=== PATIENT | female | born 1980 | race Caucasian/White ===

== ENCOUNTER 2019-12-31 11:30 | Emergency (ER) | payer SELFPAY ==
[2019-12-31 12:50] VITALS: BP 100/68; PULSE 88; RESP 20; TEMP 37.1; O2SAT 97
== END 2019-12-31 13:20 | disposition left against medical advice (07) ==
LOC: EXPBETH 11:39
PROVIDERS: Emergency Provider Registered Nurse
DX: Z53.21 Procedure and treatment not carried out due to patient leaving prior to being seen by health care provider (principal)
CPT/HCPCS: 87081; 87804; 87880; 99199

== ENCOUNTER 2020-07-23 09:11 | Emergency (ER) | payer MEDICAID, SELFPAY ==
[2020-07-23 09:20] VITALS: BP 108/67; PULSE 73; RESP 16; TEMP 36.5; O2SAT 99
--- NOTE | 2020-07-23 09:31 | ED.FEMALEGU ---
HPI - Female Genitourinary General Chief complaint: Urogenital-Female Stated complaint: frequent urination/burning urination Time Seen by Provider: 07/23/20 09:31 Source: patient and RN notes reviewed History of Present Illness HPI Narrative: Patient is a 39-year-old female who presents the urgent care with complaints of urinary frequency and blood in her urine. Patient states that the urinary frequency started approximately 2 days ago with some abdominal discomfort. States that the blood in the urine was noticed last night. Patient denies any fever, nausea, vomiting. States that she has been using ibuprofen for the pain. Patient reports a history of urinary tract infections. No other acute complaints. No acute distress noted. Patient aware of plan of care. Related Data Allergies Allergy/AdvReac Type Severity Reaction Status Date / Time No Known Allergies Allergy Mild Verified 07/23/20 09:27 Review of Systems Review of Systems: Narrative: CONSTITUTIONAL: Denies fever, chills, or sweats. EYES: Denies visual changes, redness, or discharge. ENT: Denies rhinorrhea, congestion, sore throat, or otalgia. CARDIOVASCULAR: Denies chest pain, palpitations, or edema. RESPIRATORY: Denies cough or dyspnea. GASTROINTESTINAL: Reports of abdominal tenderness without nausea, vomiting, diarrhea GENITOURINARY: Reports of urinary frequency and hematuria SKIN: Denies rash or itching. MUSCULOSKELETAL: Denies back pain, joint pain, or myalgia. NEUROLOGIC: Denies headache, numbness, or weakness. All other systems reviewed are negative, except as documented in HPI. PMFSH Past Medical History Medical History (Updated 07/23/20 @ 09:37 by JUAN ANTONIO Kathleen) Tubal infertility in female Surgical History Surgical History (Updated 10/18/19 @ 08:46 by Elaine Alaniz NP) Hx of cholecystectomy Previous section Social History Social History (Updated 10/18/19 @ 08:45 by Elaine Alaniz NP) Smoking status: Former smoker Comments At the time of my signature, I reviewed and agree with the nursing past medical, surgical, social, and family history. There is no relevant family history pertinent to the patient complaint. Exam Narrative: Exam Narrative: GENERAL: This is a well-nourished, well-developed patient, in no apparent distress. HEAD: normocephalic, atraumatic. EYES: PERRL. Sclera clear/white. Vision is grossly intact. EARS: External ears normal NOSE: External nose normal with no obvious nasal discharge, nares without redness, no rhinorrhea. THROAT: Mucous membranes moist NECK: Neck supple GASTROINTESTINAL: Abdomen soft, suprapubic tenderness, nondistended. SKIN: warm, intact with no suspicious lesions or rash, good texture and turgor. NEURO: awake, alert, and oriented to person, place and time. There were no obvious focal neurologic abnormalities. EXTREMITIES: No clubbing, cyanosis, or edema. BACK: Bilateral CVA tenderness Course Vital Signs Vital signs: Vital Signs Temperature 97.7 F 07/23/20 09:20 Pulse Rate 73 07/23/20 09:20 Respiratory Rate 16 07/23/20 09:20 Blood Pressure 108/67 07/23/20 09:20 Pulse Oximetry 99 07/23/20 09:20 Temperature 97.7 F 07/23/20 09:20 Pulse Rate 73 07/23/20 09:20 Respiratory Rate 16 07/23/20 09:20 Blood Pressure 108/67 07/23/20 09:20 Pulse Oximetry 99 07/23/20 09:20 Reviewed MDM - Female Genitourinary MDM Narrative Medical decision making narrative: Reviewed lab results with the patient. She is aware that urine analysis is questionable of a urinary tract infection due to a trace amount of blood and bacteria. Advised the patient to complete oral antibiotic regimen as prescribed. Make sure to eat and drink with the medication. Increase water intake and avoid sugary and caffeinated drinks. Continue to use Tylenol/ibuprofen as needed for pain. If you develop any increase in symptoms associated with severe abdominal pain, low back pressure, f
== END 2020-07-23 09:41 | disposition home or self-care (01) ==
PROVIDERS: Emergency Provider Nurse Practitioner Family
DX: N39.0 Urinary tract infection, site not specified (principal); Z87.891 Personal history of nicotine dependence
CPT/HCPCS: 81003; 87086; 87088; 99213; G0463

== ENCOUNTER 2021-02-07 08:11 | Emergency (ER) | payer OTHER, SELFPAY ==
--- NOTE | 2021-02-07 08:35 | ED.URI ---
HPI - URI/Sore Throat General Chief Complaint: Upper Respiratory Infection Stated Complaint: COVID Symptoms Time Seen by Provider: 02/07/21 08:42 Source: patient and RN notes reviewed Mode of arrival: ambulatory Limitations: no limitations History of Present Illness HPI Narrative: 40-year-old female presents to [facility] care with day 2 symptoms of cough, fevers up to 101.6, ear pain, nasal congestion with drainage and feelings of chest also been congested. Patient denies any shortness of breath, respirations are even and nonlabored, no tachypnea with SAO2 98% on room air. Patient states no known exposure to COVID, does work on [employer] department and is concerned for possible COVID.She states that she has been taking Ibuprofen for her symptoms. MD elicited complaint: fever, cough, sore throat, rhinorrhea, nasal congestion and other (ears hurt) Onset (ago): day(s) (2) Consistency: constant and progressively worsening Able to tolerate fluids by mouth: Yes Exacerbating factors: swallowing Context: sick contacts (step-son also ill) Associated symptoms: chills and myalgias Treatments prior to arrival: ibuprofen Related Data Allergies Allergy/AdvReac Type Severity Reaction Status Date / Time No Known Allergies Allergy Mild Verified 07/23/20 09:27 Review of Systems Review of Systems: Narrative: CONSTITUTIONAL: Positive fever, chills, or sweats. EYES: Denies visual changes, redness, or discharge. ENT:Positive rhinorrhea, congestion, sore throat, and otalgia. CARDIOVASCULAR: Denies chest pain, palpitations, or edema. RESPIRATORY: positive for cough denies dyspnea. GASTROINTESTINAL: Denies abdominal pain, nausea, vomiting, or diarrhea. GENITOURINARY: Denies dysuria or hematuria. SKIN: Denies rash or itching. MUSCULOSKELETAL: Denies back pain, joint pain, generalized body aches. NEUROLOGIC: Denies headache, numbness, or weakness. PSYCHIATRIC: Denies anxiety or depression. All systems reviewed & are unremarkable except as noted in HPI and below PMFSH Past Medical History Medical History (Updated 02/08/21 @ 00:00 by Andria Daemon) Tubal infertility in female UTI (urinary tract infection) Surgical History Surgical History (Updated 10/18/19 @ 08:46 by Elaine Alaniz NP) Hx of cholecystectomy Previous section Family History Family History (Updated 02/07/21 @ 09:07 by Elaine Alaniz NP) Grandparent Breast cancer Heart disease Father Heart disease Acute myocardial infarction Mother Diabetes mellitus Social History Social History (Updated 02/07/21 @ 09:06 by Elaine Alaniz NP) Smoking status: Former smoker Alcohol intake: current Alcohol use details: rare social Substance use: never Living arrangements: with family Gender identity (if verbalized by the patient): Female Comments At time of signature, agree with nursing past medical, surgical, social and family history. There is no relevant family history pertinent to the presenting complaint Exam Narrative: Exam Narrative: GENERAL: Well-appearing, well-nourished, and in no acute distress. HEAD: Normocephalic, atraumatic. EYES: PERRLA and EOMI. ENT: Nares red with clear rhinorrhea no epistaxis. Mucous membranes moist.TM's normal with good light reflex, throat red with no exudates or lesions, no acute tonsil enlargement, post nasal drainage present NECK: Supple.no lymphadenopathy CHEST: Clear to auscultation. No respiratory distress.cough with no respiratory distress SAO2 98% room air. HEART: Regular rate and rhythm. No murmur heard. Normal peripheral pulses. ABDOMEN: Soft, nontender, nondistended, normal active bowel sounds. EXTREMITIES: Normal range of motion. No edema. SKIN: Warm, dry, no rash. NEURO: No focal deficits. Alert and oriented x3. Course Vital Signs Vital signs: Vital Signs Temperature 36.9 C 02/07/21 08:40 Pulse Rate 83 02/07/21 08:40 Respiratory Rate 18 02/07/21 08:40 Blood Pressure 128/71 02/07/21
[2021-02-07 08:40] VITALS: BP 128/71; PULSE 83; RESP 18; TEMP 36.9; O2SAT 98
[2021-02-08 20:23] LABS: SARS-CoV-2 RNA PCR Negative
== END 2021-02-07 09:40 | disposition home or self-care (01) ==
PROVIDERS: Emergency Provider Registered Nurse
DX: J06.9 Acute upper respiratory infection, unspecified (principal); J02.9 Acute pharyngitis, unspecified; Z20.822 Contact with and (suspected) exposure to COVID-19; Z87.891 Personal history of nicotine dependence
CPT/HCPCS: 87081; 87426; 87804; 87880; 99213; C9803; G0463; U0003; U0005

== ENCOUNTER 2021-08-07 08:03 | Emergency (ER) | payer OTHER, SELFPAY ==
[2021-08-07 08:08] VITALS: BP 126/65; PULSE 98; RESP 20; TEMP 36.4; O2SAT 99
--- NOTE | 2021-08-07 08:09 | ED.URI ---
HPI - URI/Sore Throat General Chief Complaint: Upper Respiratory Infection Stated Complaint: sore throat ears clogged Time Seen by Provider: 08/07/21 08:09 Source: patient and RN notes reviewed History of Present Illness HPI Narrative: Patient is a 40-year-old female who presents the urgent care with complaints of sore throat and ears clogged since yesterday. Patient states that she was hospitalized for Covid in the last 2 weeks for Covid pneumonia. Patient is out of quarantine. States that she had a low-grade fever last night and was taking ibuprofen and throat spray. Denies of any headache, nausea or vomiting. No other acute complaints. No acute distress noted. Patient aware of the plan of care. Some parts of this dictation were generated by voice recognition software and may contain typographical and/or grammatical inaccuracies. Related Data Home Medications Medication Instructions Recorded Confirmed cyclobenzaprine 5 mg PO TID PRN 08/07/21 08/07/21 Allergies Allergy/AdvReac Type Severity Reaction Status Date / Time No Known Allergies Allergy Mild Verified 07/23/20 09:27 Review of Systems Review of Systems: CONSTITUTIONAL: Denies fever, chills, or sweats. EYES: Denies visual changes, redness, or discharge. ENT: Denies rhinorrhea, congestion, otalgia. Reports of sore throat and ears clogged CARDIOVASCULAR: Denies chest pain, palpitations, or edema. RESPIRATORY: Denies cough or dyspnea. GASTROINTESTINAL: Denies abdominal pain, nausea, vomiting, or diarrhea. GENITOURINARY: Denies dysuria or hematuria. SKIN: Denies rash or itching. MUSCULOSKELETAL: Denies back pain, joint pain, or myalgia. NEUROLOGIC: Denies headache, numbness, or weakness. All other systems reviewed are negative, except as documented in HPI. [facility] Past Medical History Medical History (Updated 08/07/21 @ 08:32 by JUAN ANTONIO Kathleen) Tubal infertility in female UTI (urinary tract infection) Surgical History Surgical History (Updated 10/18/19 @ 08:46 by Elaine Alaniz NP) Hx of cholecystectomy Previous section Family History Family History (Updated 02/07/21 @ 09:07 by Elaine Alaniz NP) Grandparent Breast cancer Heart disease Father Heart disease Acute myocardial infarction Mother Diabetes mellitus Social History Social History (Updated 02/07/21 @ 09:06 by Elaine Alaniz NP) Smoking status: Former smoker Alcohol intake: current Alcohol use details: rare social Substance use: never Gender identity (if verbalized by the patient): Female Comments At the time of my signature, I reviewed and agree with the nursing past medical, surgical, social, and family history. There is no relevant family history pertinent to the patient complaint. Exam Narrative: GENERAL: This is a well-nourished, well-developed patient, in no apparent distress. HEAD: normocephalic, atraumatic. EYES: PERRL. Sclera clear/white. Vision is grossly intact. EARS: External ears normal, auditory canals clear and without drainage, mild fluid noted behind bilateral TMs without otitis, TMs normal without perforation. Hearing grossly intact. NOSE: External nose normal with no obvious nasal discharge, nares without redness, no rhinorrhea. THROAT: Mucous membranes moist, mild erythema noted posterior oropharynx with mild postnasal drainage NECK: Neck supple, non-tender without lymphadenopathy CARDIOVASCULAR: Regular rate and rhythm without murmurs, gallops, or rubs. RESPIRATORY: Clear to auscultation. Breath sounds equal bilaterally. No wheezes, rales, or rhonchi. SKIN: warm, intact with no suspicious lesions or rash, good texture and turgor. NEURO: awake, alert, and oriented to person, place and time. There were no obvious focal neurologic abnormalities. EXTREMITIES: No clubbing, cyanosis, or edema. Course Vital Signs Vital signs: Vital Signs Temperature 97.5 F L 08/07/21 08:08 Pulse Rate 98 08/07/21 08:08 Resp
== END 2021-08-07 08:35 | disposition home or self-care (01) ==
PROVIDERS: Emergency Provider Nurse Practitioner Family; PCP Nurse Practitioner Family
DX: J02.9 Acute pharyngitis, unspecified (principal); Z87.891 Personal history of nicotine dependence
CPT/HCPCS: 87081; 87880; 99213; G0463

== ENCOUNTER 2021-10-24 08:50 | Emergency (ER) | payer OTHER, SELFPAY ==
[2021-10-24 08:54] VITALS: BP 131/80; PULSE 81; RESP 16; TEMP 37; O2SAT 100
--- NOTE | 2021-10-24 08:58 | ED.URI ---
HPI - URI/Sore Throat General Chief Complaint: Upper Respiratory Infection Stated Complaint: sore throat ear pain Source: patient and RN notes reviewed Mode of arrival: ambulatory History of Present Illness HPI Narrative: This is a 41-year-old female who presented to urgent care today with complaints of a sore throat and ear pain frontal pressure a fever. According to patient last night she developed the symptoms in noted having a temperature of 101.0. Patient notes that she did take ibuprofen at home with no relief. The patient denies SOB, CP, palpitation, extremity numbness, lightheadedness, dizziness, constipation, diarrhea, or chills.. Strep negative Related Data Allergies Allergy/AdvReac Type Severity Reaction Status Date / Time No Known Allergies Allergy Mild Verified 07/23/20 09:27 Review of Systems Review of Systems: A 14 organ system Review of Systems was performed and pertinent positives included in the HPI, otherwise remaining ROS is negative. [facility] Past Medical History Medical History Tubal infertility in female UTI (urinary tract infection) Surgical History Surgical History Hx of cholecystectomy Previous section Family History Family History Grandparent Breast cancer Heart disease Father Heart disease Acute myocardial infarction Mother Diabetes mellitus Social History Social History (Updated 02/07/21 @ 09:06 by Elaine Alaniz NP) Smoking status: Former smoker Alcohol intake: current Alcohol use details: rare social Substance use: never Gender identity (if verbalized by the patient): Female Exam Narrative: GENERAL: This is a well-nourished, well-developed patient, in no apparent distress. HEAD: normocephalic, atraumatic. EYES: PERRL. Sclera clear/white. Vision is grossly intact. EARS: External ears normal, auditory canals clear and without drainage, TMs normal without perforation. Hearing grossly intact. NOSE: External nose normal with no obvious nasal discharge, nares without redness, no rhinorrhea. THROAT: Mucous membranes moist, posterior pharynx with erythema. NECK: Neck supple, non-tender without lymphadenopathy, masses or thyromegaly. CARDIOVASCULAR: Regular rate and rhythm without murmurs, gallops, or rubs. RESPIRATORY: Clear to auscultation. Breath sounds equal bilaterally. No wheezes, rales, or rhonchi. GASTROINTESTINAL: Abdomen soft, non-tender, nondistended. Bowel sounds are active. No hepato-splenomegaly, or palpable masses. No guarding. SKIN: warm, intact with no suspicious lesions or rash, good texture and turgor. NEURO: awake, alert, and oriented to person, place and time. There were no obvious focal neurologic abnormalities. Steady gait EXTREMITIES: Normal range of motion. No edema. No calf tenderness. Negative Homans sign bilaterally. BACK: Nontender without deformity or crepitance. No flank tenderness. Course Course Emergency Course: Patient diagnosed with viral infection and instructed to use [id number] medication for symptoms Vital Signs Vital signs: Vital Signs Temperature 98.6 F 10/24/21 08:54 Pulse Rate 81 10/24/21 08:54 Respiratory Rate 16 10/24/21 08:54 Blood Pressure 131/80 10/24/21 08:54 Pulse Oximetry 100 10/24/21 08:54 Temperature 98.6 F 10/24/21 08:54 Pulse Rate 81 10/24/21 08:54 Respiratory Rate 16 10/24/21 08:54 Blood Pressure 131/80 10/24/21 08:54 Pulse Oximetry 100 10/24/21 08:54 MDM - URI/Sore Throat Differential Diagnosis Differential diagnosis: Likely upper respiratory infection, sinusitis, viral infection, influenza and pharyngitis Lab Data Labs: Strep Screen Presumptive Negative *(Reference Range: Negative)* Discharge Plan Discharge Clinic
== END 2021-10-24 09:17 | disposition home or self-care (01) ==
PROVIDERS: Emergency Provider Nurse Practitioner; PCP Nurse Practitioner Family
DX: B34.9 Viral infection, unspecified (principal); Z87.891 Personal history of nicotine dependence
CPT/HCPCS: 87081; 87880; 99213; G0463

== ENCOUNTER 2021-11-28 09:44 | Emergency (ER) | payer OTHER, SELFPAY ==
[2021-11-28 09:50] VITALS: BP 138/78; PULSE 87; RESP 16; TEMP 36.9; O2SAT 100
--- NOTE | 2021-11-28 10:05 | ED.URI ---
HPI - URI/Sore Throat General Chief Complaint: Upper Respiratory Infection Stated Complaint: Sore throat, cough Time Seen by Provider: 11/28/21 10:05 Source: patient, family, RN notes reviewed and old records reviewed Mode of arrival: ambulatory Limitations: no limitations History of Present Illness HPI Narrative: 41-year-old female presents to the [facility] with complaints of sore throat and cough since Wednesday. Was tested PCR at [facility] which she reports is negative COVID on Wednesday, got her results on Wednesday. Has taken ibuprofen and Tylenol along with NyQuil. Patient is not COVID vaccinated she is fully vaccinated. Has concerns for FLU Related Data Home Medications Medication Instructions Recorded Confirmed buspirone 15 mg PO DAILY 11/28/21 11/28/21 cyclobenzaprine 5 mg PO DAILY PRN 11/28/21 11/28/21 hydroxyzine pamoate 50 mg PO DAILY 11/28/21 11/28/21 lamotrigine 25 mg PO DAILY 11/28/21 11/28/21 trazodone 100 mg PO HS 11/28/21 11/28/21 Allergies Allergy/AdvReac Type Severity Reaction Status Date / Time No Known Allergies Allergy Mild Verified 07/23/20 09:27 Review of Systems Review of Systems: All systems reviewed & are unremarkable except as noted in HPI and below Constitutional: Constitutional: Reports as per HPI, Denies chills, Reports fever(s) and Denies headache(s) Eyes: Eyes: Reports no additional eye complaints ENT: Reports as per HPI, Denies vertigo, Denies dizziness, Denies headache(s), Denies nasal congestion and Reports sore throat Comments: Laryngitis Cardiovascular: Cardiovascular: Reports no additional cardiovascular complaints, Denies chest pain, Denies syncope, Denies rapid heart rate and Denies dyspnea Respiratory: Respiratory: Reports as per HPI, Reports no additional respiratory complaints, Reports cough, Denies dyspnea and Denies wheezing Gastrointestinal: Gastrointestinal: Reports no additional gastrointestinal complaints, Denies abdominal pain, Denies diarrhea, Denies nausea and Denies vomiting Musculoskeletal: Musculoskeletal: Reports no additional musculoskeletal complaints and Denies numbness Integumentary/Breasts: Skin/Breast: Reports system reviewed and no additional complaints, except as docu Neurologic: Reports system reviewed and no additional complaints, except as documented, Denies vertigo, Denies dizziness, Denies syncope, Denies headache(s), Denies focal weakness and Denies numbness Psychiatric: Psychiatric: Reports no additional psychiatric complaints Allergic/Immunologic: Allergic/Immunologic: Reports no additional allergic/immunologic complaints and Denies wheezing PMFSH Past Medical History Medical History Tubal infertility in female UTI (urinary tract infection) Surgical History Surgical History Hx of cholecystectomy Previous section Family History Family History Grandparent Breast cancer Heart disease Father Heart disease Acute myocardial infarction Mother Diabetes mellitus Social History Social History Smoking status: Former smoker Alcohol intake: current Alcohol use details: rare social Substance use: never Gender identity (if verbalized by the patient): Female Comments At the time of my signature, I reviewed and agree with the nursing past medical, surgical, social, and family history. There is no relevant family history pertinent to the patient complaint. Exam Const: General: cooperative, healthy appearing, no acute distress, well developed and alert Nutritional Appearance: well nourished Orientation/consciousness: patient oriented x3 Limitations: no limitations HENMT: Head: normal to inspection Ears: hearing grossly normal bilaterally, external ears normal, TM's normal bilaterally and EAC's normal General no
== END 2021-11-28 10:32 | disposition home or self-care (01) ==
PROVIDERS: Emergency Provider Nurse Practitioner; PCP Nurse Practitioner Family
DX: B34.9 Viral infection, unspecified (principal); R09.82 Postnasal drip; J04.0 Acute laryngitis; Z87.891 Personal history of nicotine dependence
CPT/HCPCS: 87081; 87880; 99213; G0463

== ENCOUNTER 2022-09-11 08:54 | Emergency (ER) | payer OTHER, SELFPAY ==
[2022-09-11 08:58] VITALS: BP 127/72; PULSE 89; RESP 16; TEMP 37.2; O2SAT 97
--- NOTE | 2022-09-11 09:01 | ED.URI ---
HPI - URI/Sore Throat General Chief Complaint: Upper Respiratory Infection Stated Complaint: sore throat headache body aches Time Seen by Provider: 09/11/22 09:01 Source: patient, RN notes reviewed and old records reviewed Mode of arrival: ambulatory Limitations: no limitations History of Present Illness HPI Narrative: 42 year old female presents to [facility] care with complaints of sore throat, fevers, body aches for the past 2 days with cough and headaches. Patient reports that she could hardly swallow this morning her throat hurts so bad. Patient reports that she has been taking NyQuil. Mucinex and Tylenol for her symptoms. Patient has been COVID vaccinated and she has also had flu shot this season, patient voices also she has had COVID in the past. MD elicited complaint: cough, sore throat and other (headache, body aches) Related Data Home Medications Medication Instructions Recorded Confirmed midodrine 10 mg tablet 10 mg PO TID 09/11/22 09/11/22 sertraline 50 mg tablet 50 mg PO DAILY 09/11/22 09/11/22 Allergies Allergy/AdvReac Type Severity Reaction Status Date / Time No Known Allergies Allergy Mild Verified 09/11/22 09:14 Review of Systems Review of Systems: CONSTITUTIONAL: Reports malaise, chills, sweats, or fever. EYES: Denies visual changes, redness, or discharge. ENT: Reports rhinorrhea, congestion, no sinus pain, no otalgia, positive for sore throat. CARDIOVASCULAR: Denies chest pain, palpitations, or edema. RESPIRATORY: Reports cough.? Denies dyspnea. GASTROINTESTINAL: Denies abdominal pain, nausea, vomiting, diarrhea SKIN: Denies rash or itching. MUSCULOSKELETAL:Reports myalgia. NEUROLOGIC: Reports headache. All systems reviewed & are unremarkable except as noted in HPI and below PMFSH Past Medical History Medical History (Updated 09/12/22 @ 00:00 by Andria Joyner) Tubal infertility in female UTI (urinary tract infection) Surgical History Surgical History (Updated 09/11/22 @ 09:05 by Elaine Alaniz NP) Hx of cholecystectomy Hx of tubal ligation Previous section Family History Family History Grandparent Breast cancer Heart disease Father Heart disease Acute myocardial infarction Mother Diabetes mellitus Social History Social History Smoking status: Former smoker Alcohol intake: current Alcohol use details: rare social Substance use: never Gender identity (if verbalized by the patient): Female Comments At time of signature, agree with nursing past medical, surgical, social and family history. There is no relevant family history pertinent to the presenting complaint Exam Narrative: GENERAL: Well-appearing, well-nourished, and in no acute distress. HEAD: Normocephalic EYES: PERRLA, conjunctivae clear ENT: Nares clear, turbinates edematous and erythematous, clear discharge. Mucous membranes moist. TM pearly sprague with dull light reflex bilaterally; no tragal tenderness. Oropharynx erythematous without lesions. Tonsils enlarged and with exudate, no drooling, no hoarseness, no trismus, uvula midline. NECK: Supple. lymphadenopathy CHEST: Clear to auscultation, breath sounds equal. No wheezing, rhonchi, rales, or stridor. No respiratory distress, speaks in full sentences.Cough, [id number]% on room air HEART: Regular rate and rhythm. No murmur heard. SKIN: Warm, dry, no rash. NEURO: Alert and oriented x3. PSYCH: Normal mood and affect Course Course Emergency Course: Patient is aware of diagnosis, understands and agrees to treatment plan.? Anticipatory guidance given.? Patient agrees to follow-up as directed and is aware of reasons to seek care at the emergency department. Portions of this record may have been created with voice recognition software Level of Care: Express Care Visit Vital Signs Vital signs: Vital Signs
== END 2022-09-11 09:35 | disposition home or self-care (01) ==
PROVIDERS: Emergency Provider Registered Nurse; PCP Nurse Practitioner Family
DX: J02.0 Streptococcal pharyngitis (principal); Z87.891 Personal history of nicotine dependence
CPT/HCPCS: 87880; 99213; G0463

== ENCOUNTER 2022-09-20 08:19 | Emergency (ER) | payer OTHER, SELFPAY ==
--- NOTE | ~2022-09-20 | XR_ITS ---
XR chest 2V DATE: 09/20/2022 08:56 INDICATION: Cough for one week. Body aches. TECHNIQUE: 2 views COMPARISON: 12/13/2008 AP and lateral chest FINDINGS: Electronic monitor device is noted in the anterior left chest wall. Normal heart size. No hilar or mediastinal enlargement. Bilateral hyperinflation. No pulmonary infiltrate or consolidation, pleural effusion or pulmonary vas cular congestion or pneumothorax. Surgical clips overlie the upper abdomen on the lateral view, likely due to cholecystectomy. IMPRESSION: Bilateral hyperinflation; no active cardiopulmonary disease Reviewed, dictated and finalized at location A. IO DIRECTOR
[2022-09-20 08:30] VITALS: BP 137/82; PULSE 78; RESP 18; TEMP 37.1; O2SAT 98
[2022-09-20 08:41] VITALS: BP 137/82; PULSE 78; RESP 18; TEMP 37.1; O2SAT 98
--- NOTE | 2022-09-20 08:45 | ED.GENADULT ---
HPI - General Adult General Chief complaint: Upper Respiratory Infection Stated complaint: Chest Congestion/Cough Source: patient Mode of arrival: ambulatory Limitations: no limitations History of Present Illness HPI narrative: Patient presents for evaluation of sick symptoms. She was evaluated here on 09/11/2022 was diagnosed with strep pharyngitis. She was given augmentin which she completed. She states her sore throat improved but now has fever, chills, diarrhea, bilateral otalgia, generalized body aches, and nonproductive cough. No SOB, nausea, or vomiting. Her son recently had strep as well. She has taken mucinex, dayquil, tylenol and ibuprofen for her symptoms. She does not smoke. No additional complaints or concerns. Related Data Home Medications Medication Instructions Recorded Confirmed midodrine 10 mg tablet 10 mg PO TID 09/11/22 09/20/22 sertraline 50 mg tablet 50 mg PO DAILY 09/11/22 09/20/22 Allergies Allergy/AdvReac Type Severity Reaction Status Date / Time No Known Allergies Allergy Mild Verified 09/20/22 08:38 Review of Systems Review of Systems: CONSTITUTIONAL: Reports fever, chills EYES: Denies visual changes, redness, or discharge. ENT: Reports sore throat and bilateral otalgia CARDIOVASCULAR: Denies chest pain, palpitations, or edema. RESPIRATORY: Reports cough. Denies SOB. GASTROINTESTINAL: Denies abdominal pain, nausea, vomiting, or diarrhea. GENITOURINARY: Denies dysuria or hematuria. SKIN: Denies rash or itching. MUSCULOSKELETAL: Reports generalized body aches. NEUROLOGIC: Denies headache, numbness, dizziness, or weakness. PSYCHIATRIC: Denies anxiety or depression. [facility] Past Medical History Medical History Syncope Tubal infertility in female UTI (urinary tract infection) Surgical History Surgical History Hx of cholecystectomy Hx of tubal ligation Previous section Family History Family History Grandparent Breast cancer Heart disease Father Heart disease Acute myocardial infarction Mother Diabetes mellitus Social History Social History Smoking status: Former smoker Alcohol intake: current Alcohol use details: rare social Substance use: never Living arrangements: with family Gender identity (if verbalized by the patient): Female Sexual Orientation (if Verbalized by the Patient): Straight or Heterosexual Spiritual care concerns: No Exam Narrative: GENERAL: Well-appearing, well-nourished, and in no acute distress. HEAD: Normocephalic, atraumatic. EYES: PERRLA and EOMI. ENT: Nares clear, no rhinorrhea or epistaxis. Mucous membranes moist. Mild posterior pharyngeal erythema without exudate. Uvula is midline. Bilateral TMs pearly sprague nonbulging NECK: Supple. No adenopathy or masses. No carotid bruits or JVD CHEST: Clear to auscultation. No respiratory distress. No wheezes rales or rhonchi HEART: Regular rate and rhythm. No murmur heard. Normal peripheral pulses. ABDOMEN: Soft, nontender, nondistended, normal active bowel sounds. EXTREMITIES: Normal range of motion. No edema. SKIN: Warm, dry, no rash. NEURO: No focal deficits. Alert and oriented x3. PSYCH: Normal mood and affect. Course Course Emergency Course: This is a 42-year-old female who presented for evaluation of sick symptoms after being treated for strep recently. COVID, influenza, strep and CXR are all negative. Exam is consistent with acute viral syndrome. Will dc with tessalon and cepacol. Follow up outpatient for further evaluation and treatment and go to ER for difficulty breathing or worsening symptoms. Pt in agreement with plan of care. Level of Care: Express Care Visit Vital Signs Vital signs: Vital Signs Temperature 3
== END 2022-09-20 09:20 | disposition home or self-care (01) ==
PROVIDERS: Emergency Provider Nurse Practitioner; PCP Nurse Practitioner Family
DX: B34.9 Viral infection, unspecified (principal); Z87.891 Personal history of nicotine dependence; Z20.822 Contact with and (suspected) exposure to COVID-19
CPT/HCPCS: 71046; 87081; 87426; 87804; 87880; 99213; C9803; G0463

== ENCOUNTER 2024-01-14 10:51 | Emergency (ER) | payer SELFPAY ==
[2024-01-14 10:57] VITALS: BP 138/73; PULSE 88; RESP 16; TEMP 36.8; O2SAT 99
--- NOTE | 2024-01-14 11:38 | ED.URI ---
HPI - URI/Sore Throat General Chief Complaint: Upper Respiratory Infection Stated Complaint: Sore Throat Time Seen by Provider: 01/14/24 11:40 Source: patient and RN notes reviewed Mode of arrival: ambulatory Limitations: no limitations History of Present Illness HPI Narrative: 43 year old female presents with concern for 1 day history of cough, chest fullness, headache, sore throat, general malaise. 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 She reports she has been taking [id number] medications without relief. MD elicited complaint: cough and sore throat Related Data Home Medications Medication Instructions Recorded Confirmed Otc Vitamins 01/14/24 Allergies Allergy/AdvReac Type Severity Reaction Status Date / Time No Known Allergies Allergy Mild Verified 01/14/24 11:28 Review of Systems Review of Systems: CONSTITUTIONAL: Reports malaise, chills, sweats, or fever. EYES: Denies visual changes, redness, or discharge. ENT: Reports rhinorrhea, congestion, and sore throat. CARDIOVASCULAR: Denies chest pain, palpitations, or edema. RESPIRATORY: Reports cough. Denies dyspnea. GASTROINTESTINAL: Denies abdominal pain, nausea, vomiting, diarrhea SKIN: Denies rash or itching. MUSCULOSKELETAL: Reports myalgia. NEUROLOGIC: Reports headache. All systems reviewed & are unremarkable except as noted in HPI and below PMFSH Past Medical History Medical History Syncope Tubal infertility in female UTI (urinary tract infection) Surgical History Surgical History Hx of cholecystectomy Hx of tubal ligation Previous section Family History Family History Grandparent Breast cancer Heart disease Father Heart disease Acute myocardial infarction Mother Diabetes mellitus Social History Social History Smoking status: Former smoker Alcohol intake: current Alcohol use details: rare social Substance use: never Living arrangements: with family Gender identity (if verbalized by the patient): Female Sexual Orientation (if Verbalized by the Patient): Straight or Heterosexual Spiritual care concerns: No Comments At time of signature, agree with nursing past medical, surgical, social and family history. There is no relevant family history pertinent to the presenting complaint Exam Narrative: GENERAL: Nontoxic-appearing, well-nourished, and in no acute distress. HEAD: Normocephalic EYES: PERRLA, conjunctivae clear ENT: Nares clear, clear discharge. Mucous membranes moist. TM pearly sprague with dull light reflex bilaterally; no tragal tenderness. Oropharynx not erythematous without lesions. Tonsils not enlarged and without exudate, no drooling, no hoarseness, no trismus, uvula midline. NECK: Supple. No lymphadenopathy CHEST: Clear to auscultation, breath sounds equal. No wheezing, rhonchi, rales, or stridor. No respiratory distress, speaks in full sentences. HEART: Regular rate and rhythm. No murmur heard. SKIN: Warm, dry, no rash. NEURO: Alert and oriented x3. PSYCH: Normal mood and affect Course Course Emergency Course: Patient is aware of diagnosis, understands and agrees to treatment plan. Anticipatory guidance given. Patient agrees to follow-up as directed and is aware of reasons to seek care at the emergency department. Portions of this record may have been created with voice recognition software Level of Care: Express Care Visit Vital Signs Vital signs: Vital Signs Temperature 98.2 F 01/14/24 10:57 Pulse Rate 88 01/14/24 10:57 Respiratory Rate 16 01/14/24 10:57 Blood Pressure 138/73 01/14/24 10:57 Pulse Oximetry 99 01/14/24 10:57 Oxygen Delivery Room Air 01/14/24 10:57 Temperature 98.2 F 01/14/24 10:57 Pulse Rate 88
== END 2024-01-14 11:51 | disposition home or self-care (01) ==
PROVIDERS: Emergency Provider Nurse Practitioner; PCP Nurse Practitioner Family
DX: B34.9 Viral infection, unspecified (principal); Z20.822 Contact with and (suspected) exposure to COVID-19; Z87.891 Personal history of nicotine dependence
CPT/HCPCS: 87081; 87426; 87804; 87880; 99213; G0463

== ENCOUNTER 2024-04-14 10:48 | Emergency (ER) | payer OTHER, SELFPAY ==
[2024-04-14 10:55] VITALS: BP 124/68; PULSE 76; RESP 18; TEMP 37.2; O2SAT 100
--- NOTE | 2024-04-14 11:19 | ED.BACK ---
HPI - Back Pain/Injury General Chief Complaint: Back Pain/Injury Stated Complaint: Back Pain Time Seen by Provider: 04/14/24 11:19 Source: patient Mode of arrival: ambulatory Limitations: no limitations History of Present Illness HPI Narrative: 43-year-old female with history of chronic back pain due to bulging dust presents today with complaint of worsening of her back pain. No new injury. He has a pain specialist but they were not able to get her in for an appointment. Patient reports that she gets nerve blocks and has prescription for tramadol but is out of this medication. Patient requesting steroids and pain shot today. Ambulatory with steady gait. All systems reviewed and negative except as noted above. Related Data Home Medications Medication Instructions Recorded Confirmed Otc Vitamins 01/14/24 Allergies Allergy/AdvReac Type Severity Reaction Status Date / Time No Known Allergies Allergy Mild Verified 01/14/24 11:28 Review of Systems Review of Systems: CONSTITUTIONAL: Denies fever, chills, or sweats. EYES: Denies visual changes, redness, or discharge. ENT: Denies rhinorrhea, congestion, sore throat, or otalgia. CARDIOVASCULAR: Denies chest pain, palpitations, or edema. RESPIRATORY: Denies cough or dyspnea. GASTROINTESTINAL: Denies abdominal pain, nausea, vomiting, or diarrhea. GENITOURINARY: Denies dysuria or hematuria. SKIN: Denies rash or itching. MUSCULOSKELETAL: Reports low back pain. Denies joint pain, or myalgia. NEUROLOGIC: Denies headache, numbness, or weakness. PSYCHIATRIC: Denies anxiety or depression. All other systems reviewed are negative, except as documented in HPI. [facility] Past Medical History Medical History Syncope Tubal infertility in female UTI (urinary tract infection) Surgical History Surgical History Hx of cholecystectomy Hx of tubal ligation Previous section Family History Family History Grandparent Breast cancer Heart disease Father Heart disease Acute myocardial infarction Mother Diabetes mellitus Social History Social History Smoking status: Former smoker Alcohol intake: current Alcohol use details: rare social Substance use: never Living arrangements: with family Gender identity (if verbalized by the patient): Female Sexual Orientation (if Verbalized by the Patient): Straight or Heterosexual Spiritual care concerns: No Comments At time of signature, agree with nursing past medical, surgical, social and family history. There is no relevant family history pertinent to the presenting complaint. Exam Narrative: GENERAL: This is a well-nourished, well-developed patient, in no apparent distress. HEAD: normocephalic, atraumatic. EYES: PERRL. Sclera clear/white. Vision is grossly intact. EARS: External ears normal NOSE: External nose normal NECK: Neck supple, non-tender without lymphadenopathy, masses or thyromegaly. CARDIOVASCULAR: Regular rate and rhythm without murmurs, gallops, or rubs. RESPIRATORY: Clear to auscultation. Breath sounds equal bilaterally. No wheezes, rales, or rhonchi. SKIN: warm, Dry, intact with no suspicious lesions or rash, good texture and turgor. NEURO: awake, alert, and oriented to person, place and time. There were no obvious focal neurologic abnormalities. EXTREMITIES: No joint tenderness, effusion, or edema noted. No calf tenderness. Negative Homans sign bilaterally. BACK: Tenderness to L4, L5. Generalized muscle tenderness to lumbar region. No deformity. Lower extremity strength 5/5 bilaterally. Course Course Level of Care: Express Care Visit Vital Signs Vital signs: Vital Signs Temperature 37.2 C 04/14/24 10:55 Pulse Rate 76 04/14
[2024-04-14] MEDS: KETOROLAC (*BKC) 60 MG/2 ML VIAL IM (11:34)
== END 2024-04-14 11:53 | disposition home or self-care (01) ==
PROVIDERS: Emergency Provider Nurse Practitioner Family; PCP Nurse Practitioner Family
DX: M54.50 Low back pain, unspecified (principal); Z87.891 Personal history of nicotine dependence
CPT/HCPCS: 96372; 99213; G0463; J1885

== ENCOUNTER 2024-07-20 08:59 | Emergency (ER) | payer OTHER, SELFPAY ==
[2024-07-20 09:05] VITALS: BP 113/61; PULSE 78; RESP 18; TEMP 36.9; O2SAT 100
--- NOTE | 2024-07-20 09:19 | ED.FEMALEGU ---
HPI - Female Genitourinary General Chief complaint: Urogenital-Female Stated complaint: Urinary Problem/Mouth Sore Time Seen by Provider: 07/20/24 09:18 Source: patient, RN notes reviewed and old records reviewed Mode of arrival: ambulatory Limitations: no limitations History of Present Illness HPI Narrative: 43 year old female who presents to [facility] with complaints of UTI symptoms of burning, urgency,frequency, lower back pain and some some suprapubic pressure for the past 3 days. Patient reports that she also has sore throat with white lesions noted to throat and to the inside of her lower mouth. Patient reports no fevers, chills or sweats denies any nausea or vomiting/ Patient reports that she has increased her water intake and has been drinking cranberry juice. Patient reports no vaginal discharge or any concern for STD exposure. MD elicited complaint: UTI Onset (ago): day(s) (UTI symptoms, this morning with throat and mouth soreness.) Severity scale (1-10): 6 Quality of pain: aching Vaginal discharge: none Treatment prior to arrival: other (increased water and cranberry juice) Related Data Home Medications Medication Instructions Recorded Confirmed aripiprazole 5 mg tablet 5 mg PO DAILY 07/20/24 07/20/24 propranolol 10 mg tablet 10 mg PO BID 07/20/24 07/20/24 Allergies Allergy/AdvReac Type Severity Reaction Status Date / Time No Known Allergies Allergy Mild Verified 07/20/24 09:25 Review of Systems Review of Systems: CONSTITUTIONAL: Denies fever, chills, or sweats. white sores in mouth CARDIOVASCULAR: Denies chest pain, palpitations, or edema. RESPIRATORY: Denies cough or dyspnea. GASTROINTESTINAL: suprapubic pressure,no nausea, vomiting, or diarrhea. GENITOURINARY: Reports dysuria, frequency, urgency. Denies flank pain or hematuria. SKIN: Denies rash or itching. MUSCULOSKELETAL: Reports back pain or myalgia. Denies CVA tenderness NEUROLOGIC: Denies headache All systems reviewed & are unremarkable except as noted in HPI and below PMFSH Past Medical History Medical History (Updated 07/21/24 @ 13:45 by Elaine Alaniz NP) Anxiety Syncope Tubal infertility in female UTI (urinary tract infection) Surgical History Surgical History Hx of cholecystectomy Hx of tubal ligation Previous section Family History Family History Grandparent Breast cancer Heart disease Father Heart disease Acute myocardial infarction Mother Diabetes mellitus Social History Social History (Updated 07/21/24 @ 13:45 by Elaine Alaniz NP) Smoking status: Current every day smoker Tobacco type: e-cigarettes/vaping Alcohol intake: current Alcohol use details: rare social Substance use: never Living arrangements: with family Gender identity (if verbalized by the patient): Female Sexual Orientation (if Verbalized by the Patient): Straight or Heterosexual Spiritual care concerns: No Comments At time of signature, agree with nursing past medical, surgical, social and family history. There is no relevant family history pertinent to the presenting complaint Exam Narrative: GENERAL: Well-appearing, well-nourished, and in no acute distress. HEAD: Normocephalic, atraumatic. white lesions to front of lower mouth X2 and one noted in throat NECK: Supple.no lymphadenopathy CHEST: Clear to auscultation. No respiratory distress.no cough noted SAO2 100% on room air HEART: Regular rate and rhythm. No murmur heard. Normal peripheral pulses. ABDOMEN: Soft, nontender, nondistended, normal active bowel sounds. No CVA tenderness, reports lower back discomfort.frequency urgency and dysuria EXTREMITIES: Normal range of motion. No edema. SKIN: Warm, dry, no rash. NEURO: No focal deficits. Alert and oriented x3. Course Course Emergency Course: Patient is aware of diagnosis, underst
[2024-07-20 09:33] LABS: EDSTREPNEGPOS1 Negative; EDUAAPPEAR Cloudy; EDUABILI Negative; EDUABLOOD 1+; EDUACOLOR1 Yellow; EDUAGLUCOSE Negative; EDUAKETONE Negative; EDUALEUKO 2+; EDUANITRATE Negative; EDUAPH 5.5; EDUAPROTEIN 1+; EDUASPGRAVITY 1.025; EDUAUROBILI 0.2
== END 2024-07-20 09:40 | disposition home or self-care (01) ==
PROVIDERS: Emergency Provider Registered Nurse; PCP Nurse Practitioner Family
DX: N39.0 Urinary tract infection, site not specified (principal); B96.20 Unspecified Escherichia coli [E. coli] as the cause of diseases classified elsewhere; K12.0 Recurrent oral aphthae; F17.290 Nicotine dependence, other tobacco product, uncomplicated
CPT/HCPCS: 81003; 87077; 87081; 87086; 87088; 87186; 87880; 99213; G0463

== ENCOUNTER 2024-08-02 08:25 | Emergency (ER) | payer OTHER, SELFPAY ==
[2024-08-02 08:30] VITALS: BP 122/64; PULSE 77; RESP 16; TEMP 37.2; O2SAT 100
--- NOTE | 2024-08-02 08:30 | ED.URI ---
HPI - URI/Sore Throat General Chief Complaint: Upper Respiratory Infection Stated Complaint: throat Time Seen by Provider: 08/02/24 08:30 Source: patient, RN notes reviewed and old records reviewed Mode of arrival: ambulatory Limitations: no limitations History of Present Illness HPI Narrative: 43-year-old female to Express Care for complaint of sore throat, runny nose, nasal congestion, bilateral ear fullness, low-grade fever, body aches, chills since yesterday morning. Patient reports cough that started this morning. Patient has not attempted to treat at home with [id number] medications. Patient denies allergies, shortness of breath, chest pain, difficulty swallowing, pertinent medical history. Patient able to tolerate fluids by mouth. Patient resting comfortably in exam room, appears tired and acutely ill. Respirations even and nonlabored. Patient in no acute distress. Related Data Home Medications Medication Instructions Recorded Confirmed aripiprazole 5 mg tablet 5 mg PO DAILY 07/20/24 08/02/24 propranolol 10 mg tablet 10 mg PO BID 07/20/24 08/02/24 meloxicam 15 mg tablet 15 mg PO DAILY 08/02/24 08/02/24 methocarbamol 500 mg tablet 500 mg PO HS 08/02/24 08/02/24 Allergies Allergy/AdvReac Type Severity Reaction Status Date / Time No Known Allergies Allergy Mild Verified 08/02/24 08:48 Review of Systems Review of Systems: All systems reviewed & are unremarkable except as noted in HPI and below Constitutional: Constitutional: Reports as per HPI, Reports body ache(s), Reports chills and Reports fever(s) Eyes: Eyes: Reports no additional eye complaints ENT: Reports as per HPI, Reports otalgia, Reports nasal congestion and Reports nasal discharge Cardiovascular: Cardiovascular: Reports no additional cardiovascular complaints, Denies chest pain and Denies dyspnea Respiratory: Respiratory: Reports no additional respiratory complaints, Reports cough and Denies dyspnea Musculoskeletal: Musculoskeletal: Reports no additional musculoskeletal complaints Neurologic: Reports system reviewed and no additional complaints, except as documented Psychiatric: Psychiatric: Reports no additional psychiatric complaints PMFSH Past Medical History Medical History Anxiety Syncope Tubal infertility in female UTI (urinary tract infection) Surgical History Surgical History Hx of cholecystectomy Hx of tubal ligation Previous section Family History Family History Grandparent Breast cancer Heart disease Father Heart disease Acute myocardial infarction Mother Diabetes mellitus Social History Social History Smoking status: Current every day smoker Tobacco type: e-cigarettes/vaping Alcohol intake: current Alcohol use details: rare social Substance use: never Living arrangements: with family Gender identity (if verbalized by the patient): Female Sexual Orientation (if Verbalized by the Patient): Straight or Heterosexual Spiritual care concerns: No Comments At the time of my signature, I reviewed and agree with the nursing past medical, surgical, social, and family history. There is no relevant family history pertinent to the patient complaint. Exam Const: General: cooperative, no acute distress, alert, tired appearing, uncomfortable and well nourished Nutritional Appearance: well nourished Orientation/consciousness: patient oriented x3 Limitations: no limitations HENMT: Head: normal to inspection Ears: external ears normal and TM abnormal bulging on the left, dull on the left, erythematous on the left and with loss of landmarks on the left Face/Nose/Sinus: Normal external nose present, Normal nares present, normal facial exam, No erythema an
[2024-08-02 09:12] LABS: EDCOVIDSCREEN Negative (Negative); EDINFLUASCREEN Negative (Negative); EDINFLUBSCREEN Negative (Negative); EDSTREPNEGPOS1 Negative (Negative)
== END 2024-08-02 09:24 | disposition home or self-care (01) ==
PROVIDERS: Emergency Provider Nurse Practitioner Family; PCP Nurse Practitioner Family
DX: H66.92 Otitis media, unspecified, left ear (principal); Z20.822 Contact with and (suspected) exposure to COVID-19; F17.290 Nicotine dependence, other tobacco product, uncomplicated
CPT/HCPCS: 87081; 87635; 87804; 87880; 99213; G0463

== ENCOUNTER 2024-08-09 10:40 | Emergency (ER) | payer OTHER, SELFPAY ==
[2024-08-09 10:45] VITALS: BP 131/63; PULSE 87; RESP 16; TEMP 36.6; O2SAT 100
--- NOTE | 2024-08-09 10:50 | ED.URI ---
HPI - URI/Sore Throat General Chief Complaint: Upper Respiratory Infection Stated Complaint: throat Time Seen by Provider: 08/09/24 10:58 History of Present Illness HPI Narrative: 43 y/o female presented for c/o mouth pain and sores for over one month. Reports a lesion to left upper mouth and lower gumline. States the lesions have persisted and pain radiates down the throat. Pain in throat is a burning sensation. Pt had been seen in clinic on 07/20, given viscous lidocaine which helps the pain temporarily.Scheduled with pcp 08/23. Denies n/v/d/f/c. Treated with amoxicillin and Augmentin since 07/20. Related Data Home Medications Medication Instructions Recorded Confirmed aripiprazole 5 mg tablet 5 mg PO DAILY 07/20/24 08/09/24 propranolol 10 mg tablet 10 mg PO BID 07/20/24 08/09/24 hydroxyzine HCl 25 mg tablet mg 08/09/24 Allergies Allergy/AdvReac Type Severity Reaction Status Date / Time No Known Allergies Allergy Mild Verified 08/02/24 08:48 Review of Systems Review of Systems: CONSTITUTIONAL: Denies body aches, fever, chills, or sweats. EYES: Denies visual changes, redness, or discharge. ENT: reports mouth pain Denies rhinorrhea, congestion, or otalgia. CARDIOVASCULAR: Denies chest pain, palpitations, or edema. RESPIRATORY: Denies dyspnea. GASTROINTESTINAL: Denies abdominal pain, nausea, vomiting, or diarrhea. SKIN: Denies rash, itching, or wounds. MUSCULOSKELETAL: Denies back pain, joint pain, or myalgia. NEUROLOGIC: Denies headache PMFSH Past Medical History Medical History Anxiety Syncope Tubal infertility in female UTI (urinary tract infection) Surgical History Surgical History Hx of cholecystectomy Hx of tubal ligation Previous section Family History Family History Grandparent Breast cancer Heart disease Father Heart disease Acute myocardial infarction Mother Diabetes mellitus Social History Social History Smoking status: Current every day smoker Tobacco type: e-cigarettes/vaping Alcohol intake: current Alcohol use details: rare social Substance use: never Living arrangements: with family Gender identity (if verbalized by the patient): Female Sexual Orientation (if Verbalized by the Patient): Straight or Heterosexual Spiritual care concerns: No Exam Narrative: GENERAL: well-appearing, no acute distress. EYES: conjunctivae clear ENT: Mucous membranes moist. TMs pearly sprague with normal light reflex bilaterally; no tragal tenderness. Oropharynx with lesion left to soft palate, round and white also right lower gumline near #24, tender. Tonsils not enlarged and without exudate. No drooling, no hoarseness, no trismus, uvula midline. No tripod positioning, hot potato voice, or soft palate swelling. NECK: Supple. No lymphadenopathy CHEST: Clear to auscultation, breath sounds equal. No respiratory distress, speaks in full sentences. HEART: Regular rate and rhythm. SKIN: Warm, dry, no rash. NEURO: Alert and oriented x3. Course Course Emergency Course: Patient is aware of diagnosis, understands and agrees to treatment plan. Anticipatory guidance given. Patient agrees to follow-up as directed and is aware of reasons to seek care at the emergency department. Portions of this record may have been created with voice recognition software Level of Care: Express Care Visit Vital Signs Vital signs: Vital Signs Temperature 98 F 08/09/24 10:45 Pulse Rate 87 08/09/24 10:45 Respiratory Rate 16 08/09/24 10:45 Blood Pressure 131/63 08/09/24 10:45 Pulse Oximetry 100 08/09/24 10:45 Oxygen Delivery Room Air 08/09/24 10:45 Temperature 98 F 08/09/24 10:45 Pulse Rate 87 08/09/24 10:45 Respiratory Rate 16 07/17
== END 2024-08-09 11:14 | disposition home or self-care (01) ==
PROVIDERS: Emergency Provider Nurse Practitioner Family; PCP Nurse Practitioner Family
DX: K05.10 Chronic gingivitis, plaque induced (principal); F17.290 Nicotine dependence, other tobacco product, uncomplicated
CPT/HCPCS: 99213; G0463

== ENCOUNTER 2024-08-15 15:54 | Emergency (ER) | payer OTHER, SELFPAY ==
[2024-08-15 16:15] VITALS: BP 118/66; PULSE 73; RESP 18; TEMP 36.7; O2SAT 98
--- NOTE | 2024-08-15 16:37 | ED.GENADULT ---
HPI - General Adult General Chief complaint: Urogenital-Female Stated complaint: Poss UTI Time Seen by Provider: 08/15/24 16:37 Source: patient, RN notes reviewed and old records reviewed Mode of arrival: ambulatory Limitations: no limitations History of Present Illness HPI narrative: 43-year-old female to [facility] with 4 day complaint of bladder fullness, burning urinate congestion, urinary frequency, hematuria, cloudy urine. Patient has been treating at home with ibuprofen and AZO. patient states that today she started having right flank pain. Patient endorses history of chronic urinary tract infections. Patient denies abdominal pain, nausea, vomiting, bowel changes, fever, allergies. Patient resting uncomfortably in exam room. Patient able to tolerate fluids by mouth. Respirations even and nonlabored. Patient in no acute distress. Related Data Home Medications Medication Instructions Recorded Confirmed aripiprazole 5 mg tablet 5 mg PO DAILY 07/20/24 08/09/24 propranolol 10 mg tablet 10 mg PO BID 07/20/24 08/09/24 hydroxyzine HCl 25 mg tablet mg 08/09/24 Allergies Allergy/AdvReac Type Severity Reaction Status Date / Time No Known Allergies Allergy Mild Verified 08/02/24 08:48 Review of Systems Review of Systems: All systems reviewed & are unremarkable except as noted in HPI and below Constitutional: Constitutional: Reports no additional constitutional complaints Eyes: Eyes: Reports no additional eye complaints ENT: Reports system reviewed and no additional complaints, except as documented Cardiovascular: Cardiovascular: Reports no additional cardiovascular complaints, Denies chest pain and Denies dyspnea Respiratory: Respiratory: Reports no additional respiratory complaints, Denies cough and Denies dyspnea Genitourinary: Genitourinary: Reports as per HPI, Reports hematuria, Reports nocturia, Reports dysuria, Reports flank pain ( Right) and Reports urinary urgency Musculoskeletal: Musculoskeletal: Reports no additional musculoskeletal complaints Neurologic: Reports system reviewed and no additional complaints, except as documented Psychiatric: Psychiatric: Reports no additional psychiatric complaints PMFSH Past Medical History Medical History Anxiety Syncope Tubal infertility in female UTI (urinary tract infection) Surgical History Surgical History Hx of cholecystectomy Hx of tubal ligation Previous section Family History Family History Grandparent Breast cancer Heart disease Father Heart disease Acute myocardial infarction Mother Diabetes mellitus Social History Social History Smoking status: Current every day smoker Tobacco type: e-cigarettes/vaping Alcohol intake: current Alcohol use details: rare social Substance use: never Living arrangements: with family Gender identity (if verbalized by the patient): Female Sexual Orientation (if Verbalized by the Patient): Straight or Heterosexual Spiritual care concerns: No Comments At the time of my signature, I reviewed and agree with the nursing past medical, surgical, social, and family history. There is no relevant family history pertinent to the patient complaint. Exam Const: General: cooperative, no acute distress, alert, in distress mild ( pain), tired appearing, uncomfortable and well nourished Nutritional Appearance: well nourished Orientation/consciousness: patient oriented x3 Limitations: no limitations HENMT: Head: normal to inspection Ears: external ears normal Face/Nose/Sinus: Normal external nose present, Normal nares present, normal facial exam, No erythema and No edema Face and sinus: normal facial exam, no erythema and no edema Mouth: Yes No
[2024-08-15 16:45] LABS: EDUAAPPEAR Cloudy; EDUABILI Negative (Negative); EDUABLOOD 2+ (Negative); EDUACOLOR1 Yellow; EDUAGLUCOSE Negative (Negative); EDUAKETONE Negative (Negative); EDUALEUKO 2+ (Negative); EDUANITRATE Negative (Negative); EDUAPROTEIN 1+ (Negative); EDUASPGRAVITY 1.025; EDUAUROBILI 0.2
== END 2024-08-15 16:50 | disposition home or self-care (01) ==
PROVIDERS: Emergency Provider Nurse Practitioner Family; PCP Nurse Practitioner Family
DX: N39.0 Urinary tract infection, site not specified (principal); B96.20 Unspecified Escherichia coli [E. coli] as the cause of diseases classified elsewhere; F17.290 Nicotine dependence, other tobacco product, uncomplicated
CPT/HCPCS: 81003; 87077; 87086; 87186; 99213; G0463

== ENCOUNTER 2025-01-15 08:56 | Emergency (ER) | payer OTHER, SELFPAY ==
[2025-01-15 09:23] LABS: EDSTREPNEGPOS1 Negative (Negative)
--- NOTE | 2025-01-15 09:27 | ED.URI ---
HPI - URI/Sore Throat General Chief Complaint: Upper Respiratory Infection Stated Complaint: Puss pocket back of throat Time Seen by Provider: 01/15/25 09:27 History of Present Illness HPI Narrative: 44y/o female presented for c/o sore throat. Onset this morning. States she saw a pus pocket in the back of the throat and endorses it feels scratchy. States she had influenza COVID recently. She currently denies any additional symptoms. Has not taken anything for pain. Related Data Allergies Allergy/AdvReac Type Severity Reaction Status Date / Time No Known Allergies Allergy Mild Verified 08/02/24 08:48 Review of Systems Review of Systems: CONSTITUTIONAL: Denies body aches, fever, chills, or sweats. EYES: Denies visual changes, redness, or discharge. ENT: reports sore throat Denies rhinorrhea, congestion, or otalgia. CARDIOVASCULAR: Denies chest pain, palpitations, or edema. RESPIRATORY: Denies dyspnea. GASTROINTESTINAL: Denies abdominal pain, nausea, vomiting, or diarrhea. SKIN: Denies rash, itching, or wounds. MUSCULOSKELETAL: Denies back pain, joint pain, or myalgia. NEUROLOGIC: Denies headache PMFSH Past Medical History Medical History Anxiety Syncope Tubal infertility in female UTI (urinary tract infection) Surgical History Surgical History Hx of cholecystectomy Hx of tubal ligation Previous section Family History Family History Grandparent Breast cancer Heart disease Father Heart disease Acute myocardial infarction Mother Diabetes mellitus Social History Social History Smoking status: Current every day smoker Tobacco type: e-cigarettes/vaping Alcohol intake: current Alcohol use details: rare social Substance use: never Living arrangements: with family Gender identity (if verbalized by the patient): Female Sexual Orientation (if Verbalized by the Patient): Straight or Heterosexual Spiritual care concerns: No Exam Narrative: GENERAL:well-appearing, no acute distress. EYES: conjunctivae clear ENT: Mucous membranes moist. TMs pearly sprague with normal light reflex bilaterally; no tragal tenderness. Oropharynx erythematous without lesions. Tonsils not enlarged and without exudate. No drooling, no hoarseness, no trismus, uvula midline. No tripod positioning, hot potato voice, or soft palate swelling. NECK: Supple. No lymphadenopathy CHEST: Clear to auscultation, breath sounds equal. No respiratory distress, speaks in full sentences. HEART: Regular rate and rhythm. No murmur heard. SKIN: Warm, dry, no rash. NEURO: Alert and oriented x3. Course Course Emergency Course: Patient is aware of diagnosis, understands and agrees to treatment plan. Anticipatory guidance given. Patient agrees to follow-up as directed and is aware of reasons to seek care at the emergency department. Portions of this record may have been created with voice recognition software Level of Care: Express Care Visit MDM - URI/Sore Throat MDM Narrative Medical decision making narrative: Neg strep result reviewed with pt. Advise supportive treatments. Patient is appropriate for outpatient treatment and follow-up. Differential Diagnosis Differential diagnosis: Likely upper respiratory infection, viral infection and pharyngitis Lab Data Labs: Lab Results 01/15/25 Range/Units 09:12 POC Grp A Strep Screen Negative (Negative) Discharge Plan Discharge Clinical Impression: Acute sore throat Patient Disposition: Home, Self-Care Condition: Stable Instructions: Antibiotic Form, Pharyngitis (ED) Additional Instructions: Rapid strep swab was negative today You will be notified in a few days if the culture comes back positive for strep, and appropriate antibiotics will be called in at that time. if symptoms are due to a viral illness, it is not treated with antibiotics. Viral symptoms can be present for up to 10-14 days. Tylenol every 8 hours as needed for pain/fever Soft foods, cool liquids, warm tea. Gargle with warm saltwater twice a day. Chloraseptic spray and throat lozenges. Rest and stay hydrated. --Follow up with your PCP --Go to the ER immediately if you cannot swallow your saliva, trouble breathing/wheezing, throat swelling, pain is persistent and severe Patient Language: Mohawk Follow-up/Referrals: Maru,Gilda Townsend APN [Primary Care Provider] - Time of Disposition: 09:30
== END 2025-01-15 09:35 | disposition home or self-care (01) ==
PROVIDERS: Emergency Provider Nurse Practitioner Family; PCP Nurse Practitioner Family
DX: J02.9 Acute pharyngitis, unspecified (principal); F17.290 Nicotine dependence, other tobacco product, uncomplicated
CPT/HCPCS: 87081; 87880; 99213; G0463